=== PATIENT | female | born 1990 | race Caucasian/White ===

== ENCOUNTER 2017-12-17 09:10 | Emergency (ER) | payer OTHER ==
--- NOTE | 2017-12-17 09:58 | ED ---
Upper Extremity Pain - HPI Summary HPI Summary: Right hand dominant patient here with left wrist pain after an injury at work yesterday. She reports she was carrying a stack of tomato cages, the top of the stack with her right hand in the bottom of the stack with her left hand. She was setting the stack down she reports her left wrist twisted in an odd way. She now has pain over the ventral surface with flexion. Denies numbness, tingling, weakness. H/o tendonitis here. Iced last night - no meds yet. - History of Current Complaint Chief Complaint: EDExtremityUpper Stated Complaint: LT WRIST INJURY Time Seen by Provider: 12/17/17 09:36 Hx Obtained From: Patient - Allergies/Home Medications Allergies/Adverse Reactions: Allergies Allergy/AdvReac Type Severity Reaction Status Date / Time No Known Allergies Allergy Verified 12/17/17 09:18 PMH/Surg Hx/FS Hx/Imm Hx Previously Healthy: Yes Endocrine/Hematology History: Denies: Hx Diabetes, Hx Thyroid Disease Cardiovascular History: Denies: Hx Hypertension Respiratory History: Denies: Hx Asthma, Hx Chronic Obstructive Pulmonary Disease (COPD) GI History: Denies: Hx Ulcer Infectious Disease History: No Infectious Disease History: Denies: Hx Hepatitis, Hx Human Immunodeficiency Virus (HIV), Traveled Outside the [place] in Last 30 Days - Social History Occupation: Employed Full-time Alcohol Use: Rare Hx Substance Use: No Substance Use Type: Reports: None Hx Tobacco Use: No Smoking Status (MU): Never Smoked Tobacco Review of Systems Constitutional: Negative Negative: Fever, Chills Positive: Arthralgia, Myalgia. Negative: Decreased ROM, Edema Skin: Negative Neurological: Negative Psychological: Normal All Other Systems Reviewed And Are Negative: Yes Physical Exam Triage Information Reviewed: Yes Vital Signs On Initial Exam: Initial Vitals Temp Pulse Resp BP Pulse Ox 98 F 73 18 147/102 100 12/17/17 09:12 12/17/17 09:12 12/17/17 09:12 12/17/17 09:12 12/17/17 09:12 Vital Signs Reviewed: Yes Appearance: Positive: Well-Appearing, No Pain Distress, Well-Nourished Skin: Positive: Warm, Skin Color Reflects Adequate Perfusion, Dry - no erythema , no edema Head/Face: Positive: Normal Head/Face Inspection ENT: Positive: Hearing grossly normal Respiratory/Lung Sounds: Positive: Breath Sounds Present Cardiovascular: Positive: Pulses are Symmetrical in both Upper and Lower Extremities Musculoskeletal: Positive: Strength/ROM Intact, Pain @ - TTP over flexor tendon of Lt wrist Neurological: Positive: Normal, Sensory/Motor Intact, Alert, Oriented to Person Place, Time, CN Intact II-III Psychiatric: Positive: Normal Diagnostics - Vital Signs Vital Signs Temp Pulse Resp BP Pulse Ox 12/17/17 09:12 98 F 73 18 147/102 100 - Laboratory Lab Statement: Any lab studies that have been ordered have been reviewed, and results considered in the medical decision making process. Course/Dx - Course Course Of Treatment: Sprain of Lt wrist tendon. Discussed JULIANNE wrap vs. cock-up splint - pt feels she would be better supported w/ cock-up splint. She will f/u w/ PCP in 1-2 weeks if sx presist. - Diagnoses Provider Diagnoses: Left wrist sprain Discharge - Sign-Out/Discharge Documenting (check all that apply): Discharge/Admit/Transfer - Discharge Plan Condition: Stable Disposition: HOME Patient Education Materials: Wrist Sprain (ED) Forms: *Work Release Referrals: Mamadou Kim MD [Primary Care Provider] - [facility] [Outside] Additional Instructions: REST, ICE, ELEVATE AND KEEP SPLINT IN PLACE MOST OF THE TIME OVER THE NEXT WEEK. You may remove splint to stretch your fingers and wrist to prevent stiffness, weakness, swelling. You may take ibuprofen alternating with acetaminophen as needed for pain Call PCP tomorrow to schedule follow-up in 1 week. *If you develop numbness, tingling, weakness, swelling or skin discoloration, remove splint and elevate arm for 20 minutes. If symptoms persist, return to ED - Billing Disposition and Condition Condition: STABLE Disposition: Home
[2017-12-17 10:13] VITALS: BP 126/82
== END 2017-12-17 10:13 | disposition home or self-care (01) ==
LOC: ED 09:10
DX: S63.502A Unspecified sprain of left wrist, initial encounter (principal); M25.532 Pain in left wrist; X50.0XXA Overexertion from strenuous movement or load, initial encounter; X50.9XXA Other and unspecified overexertion or strenuous movements or postures, initial encounter; Y92.9 Unspecified place or not applicable
CPT/HCPCS: 99282

== ENCOUNTER 2019-05-28 08:06 | Emergency (ER) | payer SELFPAY ==
--- NOTE | 2019-05-28 08:18 | ED ---
Upper Extremity Pain - HPI Summary HPI Summary: 28-year-old right hand dominant female presents to the emergency department after crushing her right hand between a pole and a left machine while at work one hour ago. She states she was pulling machine back when she sandwiched her hand between the machine and the pole. She endorses 8 out of 10 pain to the right hand with no numbness, tingling, or radiation. She states ice helped alleviate her symptoms but has not taken any medication prior to arrival. She denies anticoagulation use or bleeding disorders. She has full range of motion of her wrist and fingers. She has full sensation of the upper extremity. She denies fever, chest pain, abdominal pain, shortness of breath, pain with urination. - History of Current Complaint Chief Complaint: EDExtremityUpper Stated Complaint: HAND INJURY PER PT. Time Seen by Provider: 05/28/19 08:13 Hx Obtained From: Patient Mechanism Of Injury: Blunt Trauma Onset/Duration: Started Hours Ago Timing: Constant Severity Initially: Moderate Severity Currently: Moderate Pain Location: Hand Character: Aching Alleviating Factor(s): Ice Associated Signs & Symptoms: Positive: Swelling, Redness, Bruising - Allergies/Home Medications Allergies/Adverse Reactions: Allergies Allergy/AdvReac Type Severity Reaction Status Date / Time No Known Allergies Allergy Verified 12/17/17 09:18 PMH/Surg Hx/FS Hx/Imm Hx Endocrine/Hematology History: Denies: Hx Diabetes, Hx Thyroid Disease Cardiovascular History: Denies: Hx Hypertension Respiratory History: Denies: Hx Asthma, Hx Chronic Obstructive Pulmonary Disease (COPD) GI History: Denies: Hx Ulcer Infectious Disease History: No Infectious Disease History: Denies: Hx Hepatitis, Hx Human Immunodeficiency Virus (HIV), Traveled Outside the [place] in Last 30 Days - Social History Alcohol Use: Rare Hx Substance Use: No Substance Use Type: Reports: None Hx Tobacco Use: No Smoking Status (MU): Never Smoked Tobacco Review of Systems Constitutional: Negative Eyes: Negative ENT: Negative Cardiovascular: Negative Respiratory: Negative Gastrointestinal: Negative Genitourinary: Negative Musculoskeletal: Negative Skin: Negative Neurological: Negative Psychological: Normal All Other Systems Reviewed And Are Negative: Yes Physical Exam Triage Information Reviewed: Yes Vital Signs On Initial Exam: Initial Vitals Temp Pulse Resp BP Pulse Ox 99.3 F 89 18 116/72 96 05/28/19 08:08 05/28/19 08:08 05/28/19 08:08 05/28/19 08:08 05/28/19 08:08 Vital Signs Reviewed: Yes Appearance: Positive: Well-Appearing, No Pain Distress, Well-Nourished Skin: Positive: Warm, Skin Color Reflects Adequate Perfusion Head/Face: Positive: Normal Head/Face Inspection Eyes: Positive: EOMI, WALKER ENT: Positive: Hearing grossly normal Neck: Positive: Nontender Respiratory/Lung Sounds: Positive: Clear to Auscultation, Breath Sounds Present Cardiovascular: Positive: RRR, S1, S2 Musculoskeletal: Positive: Strength/ROM Intact, Other - Inspection of the right hand reveals erythema and ecchymosis and edema to the dorsal aspect of the metacarpal bones at the second third and fourth digit. There is tenderness to palpation of the metacarpal bones at the second, third, fourth digit. She has full range of motion in the right upper extremity. She has 2+ radial pulse and brisk capillary refill in the right hand. Median, radial, ulnar nerves motor and sensory function are intact in the right hand. No snuffbox tenderness. Neurological: Positive: Sensory/Motor Intact, Alert, Oriented to Person Place, Time, Speech Normal Psychiatric: Positive: Normal AVPU Assessment: Alert Procedures - Sedation Patient Received Moderate/Deep Sedation with Procedure: No Diagnostics - Vital Signs Vital Signs Temp Pulse Resp BP Pulse Ox 05/28/19 08:08 99.3 F 89 18 116/72 96 - Laboratory Lab Statement: Any lab studies that have been ordered have been reviewed, and results considered in the medical decision making process. Course/Dx - Course Course Of Treatment: Patient was evaluated in the emergency department today for right hand pain. patient was seen and examined. Her vital signs are stable and she is afebrile. She refused medication for pain control. An x-ray of the right hand was performed which revealed no evidence of acute fracture. It appears she sustained a contusion to her right hand. She was given information to rest, elevate, ice her hand and to take ibuprofen for pain. She was told to return to the emergency department immediately if she developed any new or worsening symptoms. - Diagnoses Differential Diagnosis/HQI/PQRI: Positive: Contusion, Fracture (Closed), Hematoma, Strain, Sprain Provider Diagnoses: Contusion of right hand Discharge ED - Sign-Out/Discharge Documenting (check all that apply): Patient Departure - Discharge Plan Condition: Stable Disposition: HOME Patient Education Materials: R.I.C.E. Treatment (ED) Forms: *Work Release Referrals: Mamadou Kim MD [Primary Care Provider] - 3 Days Additional Instructions: You were seen in the emergency department today for pain in your right hand. An x-ray was done which showed no evidence of fracture. It is likely you sustained a large bruise to your hand which will heal on its own over time. Please be sure to take ibuprofen for pain, apply ice 20 minutes on/off, elevate your hand and follow-up with your doctor in the next 3-5 days if your symptoms are not improving. Please return to the emergency Department immediately if you developed any new or worsening symptoms. - Billing Disposition and Condition Condition: STABLE Disposition: Home
[2019-05-28 09:31] VITALS: BP 140/97
== END 2019-05-28 09:30 | disposition home or self-care (01) ==
LOC: ED 08:06
DX: S60.221A Contusion of right hand, initial encounter (principal); W23.0XXA Caught, crushed, jammed, or pinched between moving objects, initial encounter; Y92.89 Other specified places as the place of occurrence of the external cause; Y99.0 Civilian activity done for income or pay
CPT/HCPCS: 99282